=== PATIENT | female | born 1950 | race Caucasian/White ===

== ENCOUNTER → 2018-06-10 | Outpatient (CLI) | payer OTHER, MEDICARE ==
[~2018-06-10] MED LIST: GABAPENTIN 100100 MG PO; IBUPROFEN 600600 M1 PO; KLONOPIN0.5 MG PO; OMEGA-31000 M1 PO; TEGRETOL XR100 MG PO; VITAMIN D3400 UNIT PO; VITAMINC500 PO
[2018-06-10 07:15] VITALS: BP 66/35
[2018-06-10 07:16] VITALS: BP 86/49
[2018-06-10 07:18] VITALS: BP 82/36
[2018-06-10 08:18] VITALS: BP 97/47
[2018-06-10 08:19] VITALS: BP 103/45
[2018-06-10 08:33] VITALS: BP 104/52
[2018-06-10 14:13] LABS: CORTISOL 60 MIN 28.4 ug/dL (Not Estab.); CORTISOL BASELINE 12.8 ug/dL (())
== END ==
LOC: OPONC 00:58
PROVIDERS: Internal Medicine
DX: I95.1 Orthostatic hypotension (principal)
CPT/HCPCS: 95113